=== PATIENT | female | born 1945 | race Caucasian/White ===

== ENCOUNTER 2021-02-15 23:03 | Inpatient (IN) ==
[2021-02-16] MEDS ORDERED: *HR* HYDROcodone/Acet 5/325 mg TABLET PO PRN (09:51)
[2021-02-16] MEDS ORDERED: Ondansetron 4 MG/2 ML VIAL IVP PRN (09:51)
[2021-02-16] MEDS ORDERED: Naloxone 0.4 MG/ML INJ IVP PRN (09:51)
[2021-02-16] MEDS ORDERED: Ipratropium/Albuterol Neb 3 ML IH PRN (10:36)
[2021-02-16 10:44] LABS: Basophils % 0.1 %; Hematocrit 27.9 % (35.3-44.9); Immature Granulocytes % 0.5 % (0-4); Lymphocytes # 0.8 K/mcL (0.6-4.6); Lymphocytes % 5.5 %; Mean Corpuscular HGB Conc 32.3 g/dL (31.6-35.5); Mean Corpuscular Hemoglobin 33.1 pg (28.0-33.3); Mean Corpuscular Volume 102.6 fL (83.0-100.0); Mean Platelet Volume 10.8 fL (9.4-12.4); Monocytes # 1.3 K/mcL (0.0-1.3); Monocytes % 9.2 %; Platelet Count 138 K/mcL (140-400); Red Blood Count 2.72 M/mcL (3.82-4.97); Red Cell Distribution Width 15.4 % (11.5-14.5); Segmented Neutrophils % 84.7 %; White Blood Count 14.1 K/mcL (4.3-11.1)
[2021-02-16 10:52] LABS: INR 1.3; Prothrombin Time 15.4 Seconds (9.4-12.1)
[2021-02-16 10:55] LABS: Activated Partial Thrombo Time 42.7 Seconds (26.0-36.0)
[2021-02-16 11:04] LABS: Albumin 3.5 g/dL (3.5-5.7); Albumin/Globulin Ratio 1.3 (1.1-2.2); Bilirubin,Total 0.5 mg/dL (0.3-1.0); Calcium 9.3 mg/dL (8.6-10.3); Globulin 2.8 g/dL (2.4-3.5); Phosphorous 5.5 mg/dL (2.7-4.5); Potassium 5.4 mEq/L (3.5-5.1); Total Protein 6.3 g/dL (6.4-8.9)
[2021-02-16] MEDS: Piperacillin/Tazobactam 3.375 GM in 0.9 % Sodium Chloride Mini Bag 100 ML IVPB SCH ×2 (11:33→23:40)
[2021-02-16 11:43] LABS: Hepatitis B Surface Antibody 59.96 mIU/mL
[2021-02-16 11:54] LABS: Hepatitis B Surface Antigen Nonreactive (Nonreactive)
[2021-02-16] MEDS ORDERED: 0.9 % Sodium Chloride 1,000 ML ONE (11:55)
[2021-02-16] MEDS ORDERED: *HR* Heparin 10,000 UNIT/10 ML VIAL IV PRN (12:22)
[2021-02-16] MEDS ORDERED: 0.9 % Sodium Chloride 250 ML IVC PRN (12:22)
[2021-02-16] MEDS ORDERED: 0.9 % Sodium Chloride 1,000 ML PRIME SCH (12:30)
[2021-02-16 15:40] LABS: % Iron Saturation 12 % (15-50); Iron 23 mcg/dL (50-170); Transferrin 139 mg/dL (203-362)
[2021-02-16] MEDS: *HR* Heparin 5,000 UNIT/ML VIAL SQ SCH (16:43)
[2021-02-16] MEDS: hydrALAZINE 25 MG TABLET PO SCH ×2 (16:43→20:06)
[2021-02-16] MEDS: *HR* OxyCODONE/APAP 10/325 TABLET PO PRN (17:48)
[2021-02-16] MEDS: OLANZapine 10 MG TAB.RAPDIS PO SCH (20:06)
[2021-02-16] MEDS: Mirtazapine 15 MG TABLET PO SCH (20:06)
[2021-02-16] MEDS: cloNIDine HCL 0.1 MG TABLET PO SCH (20:06)
[2021-02-17] MEDS: *HR* Heparin 5,000 UNIT/ML VIAL SQ SCH ×2 (05:17→15:58)
[2021-02-17] MEDS: NIFEdipine XL (24 HR) 60 MG TAB.ER.24 PO SCH (08:04)
[2021-02-17] MEDS: Aspirin Enteric Coated 81 MG Tablet PO SCH (08:04)
[2021-02-17] MEDS: *HR* LORazepam 0.5 MG TABLET PO SCH (08:04)
[2021-02-17] MEDS: cloNIDine HCL 0.1 MG TABLET PO SCH ×2 (08:04→19:54)
[2021-02-17] MEDS: hydrALAZINE 25 MG TABLET PO SCH ×3 (08:04→19:54)
[2021-02-17] MEDS: Isosorbide MONOnitrate (24 HR) 60 MG TAB.ER.24H PO SCH (08:05)
[2021-02-17] MEDS: Fluticasone Propionate Nasal 50 MCG/SPRAY BOTTLE NS SCH (08:05)
[2021-02-17] MEDS: *HR* OxyCODONE/APAP 10/325 TABLET PO PRN (08:10)
[2021-02-17 08:53] LABS: Calcium 9.4 mg/dL (8.6-10.3); Potassium 4.4 mEq/L (3.5-5.1)
[2021-02-17] MEDS ORDERED: amLODIPine 5 MG TABLET PO SCH (09:00)
[2021-02-17] MEDS ORDERED: 0.9 % Sodium Chloride 500 ML IVC ONE (10:56)
[2021-02-17] MEDS ORDERED: 0.9 % Sodium Chloride 250 ML IVC ONE (11:29)
[2021-02-17] MEDS: Piperacillin/Tazobactam 3.375 GM in 0.9 % Sodium Chloride Mini Bag 100 ML IVPB SCH ×2 (11:47→23:09)
[2021-02-17] MEDS: Sucralfate 1 GM TABLET PO SCH ×2 (15:56→20:03)
[2021-02-17] MEDS: Patient Taking Own Medication 1 EACH PO SCH (19:55)
[2021-02-17] MEDS: OLANZapine 10 MG TAB.RAPDIS PO SCH (20:03)
[2021-02-17] MEDS: Mirtazapine 15 MG TABLET PO SCH (20:03)
[2021-02-17] MEDS ORDERED: Sennosides 8.6 MG TABLET PO SCH (21:00)
[2021-02-17] MEDS ORDERED: OLANZapine 5 MG TAB.RAPDIS PO SCH (21:00)
[2021-02-18 01:48] LABS: Basophils % 0.3 %; Eosinophils # 0.2 K/mcL (0.0-0.6); Eosinophils % 2.6 %; Hematocrit 24.6 % (35.3-44.9); Hemoglobin 7.9 g/dL (11.5-15.4); Immature Granulocytes % 0.3 % (0-4); Lymphocytes # 1.1 K/mcL (0.6-4.6); Lymphocytes % 15.3 %; Mean Corpuscular HGB Conc 32.1 g/dL (31.6-35.5); Mean Corpuscular Hemoglobin 33.3 pg (28.0-33.3); Mean Corpuscular Volume 103.8 fL (83.0-100.0); Monocytes % 13.3 %; Neutrophils # 5.1 K/mcL (1.6-8.9); Platelet Count 137 K/mcL (140-400); Red Blood Count 2.37 M/mcL (3.82-4.97); Red Cell Distribution Width 15.3 % (11.5-14.5); Segmented Neutrophils % 68.2 %; White Blood Count 7.4 K/mcL (4.3-11.1)
[2021-02-18 02:09] LABS: Calcium 8.5 mg/dL (8.6-10.3); Potassium 4.2 mEq/L (3.5-5.1)
[2021-02-18] MEDS: *HR* Heparin 5,000 UNIT/ML VIAL SQ SCH (05:04)
[2021-02-18] MEDS ORDERED: 0.9 % Sodium Chloride 250 ML IVC PRN (08:01)
[2021-02-18] MEDS ORDERED: *HR* Heparin 10,000 UNIT/10 ML VIAL IV PRN ×2 (08:01)
[2021-02-18] MEDS ORDERED: Cholecalciferol (D-3) 1,000 UNIT (25MCG) TABLET PO SCH (09:00)
[2021-02-18] MEDS ORDERED: Metoprolol XL (24 HR) Succ 50 MG TAB.ER.24H PO SCH (09:00)
[2021-02-18] MEDS ORDERED: Loratadine 10 MG TABLET PO SCH (09:00)
[2021-02-18] MEDS: Sucralfate 1 GM TABLET PO SCH ×2 (12:00→13:48)
[2021-02-18] MEDS: hydrALAZINE 25 MG TABLET PO SCH ×2 (12:02→15:50)
[2021-02-18] MEDS: Patient Taking Own Medication 1 EACH PO SCH (13:09)
[2021-02-18] MEDS: Piperacillin/Tazobactam 3.375 GM in 0.9 % Sodium Chloride Mini Bag 100 ML IVPB SCH (13:40)
[2021-02-18] MEDS: Aspirin Enteric Coated 81 MG Tablet PO SCH (13:42)
[2021-02-18] MEDS: NIFEdipine XL (24 HR) 60 MG TAB.ER.24 PO SCH (13:42)
[2021-02-18] MEDS: *HR* LORazepam 0.5 MG TABLET PO SCH (13:42)
[2021-02-18] MEDS: cloNIDine HCL 0.1 MG TABLET PO SCH (13:42)
[2021-02-18] MEDS: Isosorbide MONOnitrate (24 HR) 60 MG TAB.ER.24H PO SCH (13:42)
[2021-02-18] MEDS: Fluticasone Propionate Nasal 50 MCG/SPRAY BOTTLE NS SCH (13:43)
[2021-02-18 15:20] LABS: Hematocrit 31.1 % (35.3-44.9)
[2021-02-18 15:22] LABS: Hemoglobin 10.5 g/dL (11.5-15.4)
[2021-02-18 15:38] VITALS: BP 117/68
== END 2021-02-18 16:43 | disposition home health service (06) | DRG 871 ==
LOC: CDU → 3BNU 02-17 06:57
PROVIDERS: ADMIT Family Medicine; ATTEND Family Medicine